=== PATIENT | female | born 1975 | race Caucasian/White ===

== ENCOUNTER → 2016-10-14 | Outpatient (CLI) | payer OTHER ==
[~2016-10-14] MED LIST: CELEXA10 MG PO; CIPRO500 MG PO; FLUTICASON0.05 MG/AC NAS; MONTELUKAST SOD10 MG PO; PERCOCET 325 MG1 TA5 PO; PHENERGAN25 M1 PO; PRENATAL1 TA1 PO; PROCARDIA XL60 MG PO; PROTONIX40 MG PO; VENTOLIN H0.09 MG/AC INH; VICODIN 5/500 505 MG PO; ZYRTEC10 M1 PO; Zofran4 MG PO
[2016-10-14 11:32] LABS: BASO % 0.7 % (0.0-1.0); EOS # 0.1 10*3/uL (0.0-0.4); EOS % 2.4 % (1.0-4.0); LYMPH # 1.4 10*3/uL (1.3-4.4); LYMPH % 26.3 % (27.0-41.0); MEAN CELL VOLUME 88.7 fl (81.0-99.0); MEAN CORPUSCULAR HGB 30.3 pg (27.0-31.0); MEAN CORPUSCULAR HGB CONC 34.1 g/dl (33.0-37.0); MEAN PLATELET VOLUME 9.1 fl (9.6-12.3); MONO # 0.4 10*3/uL (0.1-1.0); NEUT # 3.4 10*3/uL (2.3-7.9); NEUT % 62.4 % (47.0-73.0); PLATELET COUNT AUTOMATED 233 10*3/uL (130-400); RED BLOOD COUNT 4.62 10*6/uL (4.10-5.10); RED CELL DISTRI WIDTH 12.5 % (0-14.5); WHITE BLOOD COUNT 5.5 10*3/uL (4.8-10.8)
[2016-10-14 11:58] LABS: BUN 16 mg/dl (7-24); CARBON DIOXIDE 26 mmol/L (21-32); CHLORIDE 105 mmol/L (98-107); EST GLOM FILT AFRICAN AMERICAN > 60 ml/min; GLUCOSE 95 mg/dL (65-99); POTASSIUM 4.2 mmol/L (3.5-5.1); SODIUM 140 mmol/L (136-145)
== END | disposition home or self-care (01) ==
LOC: LAB 10:30
PROVIDERS: Orthopaedic Surgery
DX: Z01.818 Encounter for other preprocedural examination (principal); G56.01 Carpal tunnel syndrome, right upper limb

== ENCOUNTER → 2016-10-20 | Day surgery (SDC) | payer OTHER ==
[~2016-10-20] VITALS: Ht 160 cm; Wt 70.3 kg
[~2016-10-20] MED LIST changes: +HYDROCODONE BIT1 T11 PO; +ZOFRAN4 MG PO
--- NOTE | ~2016-10-20 | O ---
[place], [place] OPERATIVE NOTE NAME: LEANDRO RICHARDSON UNIT #: [id number] ROOM: DOCTOR: OSORIO TERRY DO BIRTHDATE: [birth year] DOS: 10/20/2016 PREOPERATIVE DIAGNOSIS: Right carpal tunnel syndrome. POSTOPERATIVE DIAGNOSIS: Right carpal tunnel syndrome. OPERATIVE PROCEDURE: Right carpal tunnel release. SURGEON: Osorio Terry DO. FIRST ASSISTANTS: Yassine and Aurora. ANESTHESIA: Orellana, THERMOPLASTIC TECHNICIAN. INDICATIONS: The patient is a 41-year-old female with a history of pain and disability about the right hand unrelieved with conservative care. The risks and benefits of the surgery were explained to the patient preoperatively. Preoperative labs and x-rays were obtained including preoperative nerve conduction velocity. PROCEDURE: The right hand was marked in the holding room. The patient was brought to the operative suite. General anesthetic with LMA intubation was performed. The timeout was performed. The right upper extremity was prepped and draped in the usual orthopedic manner. The extremity was exsanguinated and tourniquet was inflated to 250 mmHg. The incision was planned between Lombardo's cardinal line of the distal wrist crease along the fourth ray. The incision was made sharply with a scalpel. Subcutaneous tissue was spread down to the level of the palmar fascia. The palmar fascia was divided longitudinally. The transverse carpal ligament was identified and divided in a longitudinal fashion. The transverse carpal ligament was followed both proximally and distally and any further entrapment along the carpal tunnel was released. A curved hemostat was used to palpate the floor of the carpal canal and no abnormalities were noted. It is noted that the flexor tendons were noted to have a significant synovitis. When no further entrapment was noted of the median nerve, the area was irrigated with normal saline and closed in a horizontal mattress suture fashion. The area about the incision was injected with Marcaine 0.5% plain. Xeroform, 4 x 4s, and cast padding were applied. The tourniquet was released. The dressing was completed with a small volar wrist splint. The anesthetic was reversed. The patient was extubated and taken to recovery room in satisfactory condition. SPONGE AND NEEDLE COUNT: Correct. ESTIMATED BLOOD LOSS: None. DRAINS: None. [place], [place] OPERATIVE NOTE NAME: LEANDRO RICHARDSON UNIT #: [id number] ROOM: DOCTOR: OSORIO TERRY DO BIRTHDATE: [birth year] SPECIMENS: None. PACKING: None. COMPLICATIONS: None. FINDINGS: Entrapment of the median nerve at the wrist with flexor tenosynovitis. OSORIO TERRY DO CM:OPRECORD:OPERATIVE NOTE [id number] OSORIO TERRY DO 10/20/16 1144 interface
[2016-10-20 06:49] VITALS: BP 116/71
[2016-10-20 08:15] VITALS: BP 107/59
[2016-10-20 08:30] VITALS: BP 122/77
[2016-10-20 08:45] VITALS: BP 127/77
[2016-10-20 09:00] VITALS: BP 126/89
[2016-10-20 09:15] VITALS: BP 133/74
== END | disposition home or self-care (01) ==
LOC: SDC 10-14 10:15
DX: G56.01 Carpal tunnel syndrome, right upper limb (principal); I10 Essential (primary) hypertension; J45.909 Unspecified asthma, uncomplicated; F41.9 Anxiety disorder, unspecified; Z98.51 Tubal ligation status; Z83.3 Family history of diabetes mellitus; Z82.49 Family history of ischemic heart disease and other diseases of the circulatory system; Z79.899 Other long term (current) drug therapy; Z88.8 Allergy status to other drugs, medicaments and biological substances

== ENCOUNTER → 2017-05-12 | Outpatient (CLI) | payer OTHER ==
[~2017-05-12] MED LIST changes: -ZYRTEC10 M1 PO; +ZYRTEC10 MG PO
[2017-05-12 14:08] LABS: BASO # 0.1 10*3/uL (0.0-0.1); BASO % 0.8 % (0.0-1.0); EOS # 0.1 10*3/uL (0.0-0.4); EOS % 1.4 % (1.0-4.0); HEMATOCRIT 40.2 % (37.0-47.0); LYMPH # 1.3 10*3/uL (1.3-4.4); LYMPH % 20.4 % (27.0-41.0); MEAN CELL VOLUME 89.5 fl (81.0-99.0); MEAN CORPUSCULAR HGB 31.2 pg (27.0-31.0); MEAN CORPUSCULAR HGB CONC 34.8 g/dl (33.0-37.0); MEAN PLATELET VOLUME 9.3 fl (9.6-12.3); MONO # 0.4 10*3/uL (0.1-1.0); MONO % 5.8 % (3.0-9.0); NEUT # 4.7 10*3/uL (2.3-7.9); NEUT % 71.3 % (47.0-73.0); PLATELET COUNT AUTOMATED 249 10*3/uL (130-400); RED BLOOD COUNT 4.49 10*6/uL (4.10-5.10); WHITE BLOOD COUNT 6.6 10*3/uL (4.8-10.8)
[2017-05-12 14:34] LABS: BUN 14 mg/dl (7-24); CHLORIDE 101 mmol/L (98-107); CREATININE 0.87 mg/dL (0.55-1.02); POTASSIUM 4.2 mmol/L (3.5-5.1); SODIUM 137 mmol/L (136-145)
== END | disposition home or self-care (01) ==
LOC: LAB 12:34
PROVIDERS: Orthopaedic Surgery
DX: Z01.818 Encounter for other preprocedural examination (principal); G56.00 Carpal tunnel syndrome, unspecified upper limb; J45.909 Unspecified asthma, uncomplicated; R94.31 Abnormal electrocardiogram [ECG] [EKG]

== ENCOUNTER → 2017-06-01 | Day surgery (SDC) | payer OTHER ==
[~2017-06-01] VITALS: Ht 160 cm; Wt 65.8 kg
[~2017-06-01] MED LIST changes: +NORCO 5-325 TA1 EACH PO
[2017-06-01 08:33] VITALS: BP 122/67
[2017-06-01 10:12] VITALS: BP 114/63
[2017-06-01 10:28] VITALS: BP 113/68
[2017-06-01 10:43] VITALS: BP 105/63
[2017-06-01 10:58] VITALS: BP 104/62
[2017-06-01 11:15] VITALS: BP 104/59
== END ==
LOC: SDC 03-30 09:30
DX: G56.02 Carpal tunnel syndrome, left upper limb (principal); I10 Essential (primary) hypertension; J45.909 Unspecified asthma, uncomplicated; F41.9 Anxiety disorder, unspecified; F32.9 Major depressive disorder, single episode, unspecified

== ENCOUNTER → 2023-04-26 | Outpatient (CLI) | payer BC | END | disposition home or self-care (01) | LOC: ORTHO 03:59 | PROVIDERS: ATTEND Orthopaedic Surgery | DX: M77.12 Lateral epicondylitis, left elbow (principal) ==

== ENCOUNTER → 2024-11-06 | Outpatient (CLI) | payer BC | END | disposition home or self-care (01) | LOC: MAMMO 10:07 | PROVIDERS: ATTEND Nurse Practitioner Family | DX: Z12.31 Encounter for screening mammogram for malignant neoplasm of breast (principal); R92.333 Mammographic heterogeneous density, bilateral breasts; N64.89 Other specified disorders of breast ==

== ENCOUNTER → 2024-12-24 | Outpatient (CLI) | payer BC | LOC: US 04:36 | PROVIDERS: ATTEND Nurse Practitioner Family | DX: N60.01 Solitary cyst of right breast (principal); R92.8 Other abnormal and inconclusive findings on diagnostic imaging of breast ==